=== PATIENT | female | born 1960 | race Caucasian/White ===

== ENCOUNTER 2018-08-24 22:44 | Emergency (ER) | payer SELFPAY ==
[~2018-08-24] VITALS: Wt 75.6 kg
[2018-08-24] MEDS ORDERED: LORAZEPAM 2 MG INJ IV ONE (23:00)
[2018-08-25 02:00] VITALS: BP 130/66; PULSE 70; RESP 14
--- NOTE | 2018-08-25 02:16 | ERD ---
ER Documentation Chief Complaint Chief Complaint BIB RA FROM HOME FOR CP, SOB X 20 MIN HOSPITALITY HOST HPI This is a very pleasant [phone] by rescue from home with complaint of chest pain shortness breath 20 minutes prior to arrival. Patient apparently got into an argument for that. Denies any fevers chills nausea vomiting. Chest pain was m ild both sides of the chest and no radiations. ROS All systems reviewed and are negative except as per history of present illness. Allergies Allergies: Coded Allergies: No Known Allergy (Unverified , 08/24/18) PMhx/Soc Anesthesia Reaction: No Hx Neurological Disorder: No Hx Respiratory Disorders: No Hx Cardiac Disorders: Yes (HTN) Hx Psychiatric Problems: No Hx Miscellaneous Medical Probl: No Hx Alcohol Use: No Hx Substance Use: No Hx Tobacco Use: No Smoking Status: Never smoker Physical Exam Vitals Vital Signs Date Temp Pulse Resp B/P (MAP) Pulse Ox O2 O2 Flow FiO2 Time Delivery Rate 08/25/18 98.0 70 14 130/66 98 Nasal 2.0 02:00 (87) Cannula 08/24/18 98.2 82 19 144/82 100 Room Air 23:03 (102) 08/24/18 98.2 75 19 125/82 100 22:46 (96) Physical Exam Const: No acute distress Head: Atraumatic Eyes: Normal Conjunctiva ENT: Normal External Ears, Nose and Mouth. Neck: Full range of motion. No meningismus. Resp: Clear to auscultation bilaterally Cardio: Regular rate and rhythm, no murmurs Abd: Soft, non tender, non distended. Normal bowel sounds Skin: No petechiae or rashes Back: No midline or flank tenderness Ext: No cyanosis, or edema Neur: Awake and alert Psych: Normal Mood and Affect Result Diagram: 08/24/18232608/24/182326 Results 24 hrs Laboratory Tests Test 08/24/18 23:27 White Blood Count 7.1 10^3/ul Red Blood Count 4.59 10^6/ul Hemoglobin 13.7 g/dl Hematocrit 41.1 % Mean Corpuscular Volume 89.5 fl Mean Corpuscular Hemoglobin 29.8 pg Mean Corpuscular Hemoglobin Concent 33.3 g/dl Red Cell Distribution Width 12.0 % Platelet Count 315 10^3/UL Mean Platelet Volume 9.5 fl Immature Granulocytes % 0.300 % Neutrophils % 57.3 % Lymphocytes % 36.2 % Monocytes % 5.4 % Eosinophils % 0.4 % Basophils % 0.4 % Nucleated Red Blood Cells % 0.0 /100WBC Immature Granulocytes # 0.020 10^3/ul Neutrophils # 4.1 10^3/ul Lymphocytes # 2.6 10^3/ul Monocytes # 0.4 10^3/ul Eosinophils # 0.0 10^3/ul Basophils # 0.0 10^3/ul Nucleated Red Blood Cells # 0.0 10^3/ul Sodium Level 143 mmol/L Potassium Level 3.5 mmol/L Chloride Level 108 mmol/L Carbon Dioxide Level 21 mmol/L Anion Gap 14 Blood Urea Nitrogen 15 mg/dl Creatinine 0.54 mg/dl Est Glomerular Filtrat Rate mL/min > 60 mL/min Glucose Level 151 mg/dl Calcium Level 9.5 mg/dl Troponin I < 0.012 ng/ml B-Type Natriuretic Peptide 31 PG/ML Current Medications Medications Dose Sig/Zia Start Time Status Last (Trade) Ordered Route PRN Stop Time Admin Dose Reason Admin Lorazepam 1 mg ONCE ONCE 08/24/18 DC 08/24/18 (Ativan) IV 23:00 23:49 08/24/18 23:01 Procedures/MDM EKG: Rate/Rhythm: [Normal Sinus Rhythm] QRS, ST, T-waves: [No changes consistent w/ acute ischemia] Impression: [No evidence of ischemia or arrhythmia] Chest X-ray 1V Interpreted by me: Soft Tissue: No acute abnormalities Bones: No acute abnormalities Mediastinum/Cardiac Silhouette/Lungs: [No acute abnormalities] Patient's thoracic symptoms have stabilized while in the department and are stable for outpatient follow up. Exam and work up not consistent w/ ischemia, arrhythmia, PE or dissection. Departure Diagnosis: Primary Impression: Chest pain Chest pain type: unspecified Qualified Codes: R07.9 - Chest pain, unspecified Condition: Stable JEFRY LI Aug 25, 2018 02:16
== END 2018-08-25 02:30 | disposition home or self-care (01) ==
LOC: E/R 22:44
DX: R07.9 Chest pain, unspecified (principal); I10 Essential (primary) hypertension
CPT/HCPCS: 36415; 71045; 80048; 83880; 84484; 85025; 93005; 96374; 99285; J2060